=== PATIENT | female | born 1970 | race Caucasian/White ===

== ENCOUNTER 2020-10-18 09:53 | Emergency (ER) | payer OTHER, SELFPAY ==
--- NOTE | ~2020-10-18 | CT_ITS ---
EXAMINATION: CT abdomen pelvis wo con DATE: 10/18/2020 11:47 INDICATION: Bilateral flank pain. TECHNIQUE: Computed tomography (CT) of the abdomen and pelvis was performed without intravenous contr ast. Automated exposure control and iterative reconstruction technique were employed. The dose-length product was 225.25 mGy-cm. COMPARISON: CT abdomen and pelvis 06/24/2014 FINDINGS: The visualized portions of the lung bases demonstrate mild atelectasis. No pleural effusion . The heart size is normal. No pericardial effusion. There is a 6 mm cyst in the liver. The gallbladd er, spleen, pancreas, adrenal glands, and right kidney are normal. There is a 2 mm stone in left kidn ey. There are no dilated loops of bowel. The appendix is normal. There are no pathologically enlarged lymph nodes. There is no free intraperitoneal fluid. There is mild lumbar spondylosis. Lumbar dextro curvature is noted. IMPRESSION: 1. 2 mm nonobstructing left kidney stone. Reviewed, dictated and finalized at location A. STITCHER
[2020-10-18 09:58] VITALS: BP 111/70; PULSE 102; RESP 18; TEMP 36.4; O2SAT 96
--- NOTE | 2020-10-18 10:26 | ED.BACK ---
HPI - Back Pain/Injury General Chief Complaint: Back Pain/Injury Stated Complaint: flank pain Time Seen by Provider: 10/18/20 10:24 History of Present Illness HPI Narrative: 50 yo female with h/o acute renal failure presents to the ED with kidney pain. She first noted low back pain yesterday. As the day went on this moved up her back until it was just below her ribs. It is bilateral. At times it radiates into her neck. She reports that this is the same pain she had when she was previously in renal failure. It is not clear what the etiology was. No other illness. Related Data Home Medications Medication Instructions Recorded Confirmed spironolactone 10/18/20 10/18/20 Allergies Allergy/AdvReac Type Severity Reaction Status Date / Time hydrocodone Allergy Mild ITCHING Verified 10/18/20 11:38 iodine Allergy Unknown Unknown Verified 10/18/20 11:38 codeine AdvReac Mild N/V Verified 10/18/20 11:38 Contrast Media Allergy Unknown HIVES, Uncoded 10/18/20 11:03 RESPIR. DISTRESS Review of Systems Review of Systems: All systems reviewed & are unremarkable except as noted in HPI and below Constitutional: Constitutional: Denies fever(s) ENT: Denies sore throat Cardiovascular: Cardiovascular: Denies chest pain Respiratory: Respiratory: Denies dyspnea Gastrointestinal: Gastrointestinal: Denies abdominal pain Genitourinary: Genitourinary: Denies hematuria, Denies dysuria and Reports flank pain Musculoskeletal: Musculoskeletal: Reports back pain and Reports myalgias Neurologic: Denies dizziness and Denies weakness Endocrine: Endocrine: Reports fatigue [facility] Past Medical History Medical History (Updated 10/18/20 @ 18:04 by Sammy Turpin MD) Acute renal failure Family History Family History (Updated 04/19/16 @ 23:19 by DOCTOR UNKNOWN) Father Asthma Sibling Asthma Mother Family history of diabetes mellitus in first degree relative Social History Social History Smoking status: Never smoker Alcohol intake: never Gender identity (if verbalized by the patient): Female Exam Const: General: healthy appearing, no acute distress and alert Orientation/consciousness: patient oriented x3 HENMT: Head: normal to inspection Neck: Neck: normal visual inspection and no lymphadenopathy Chest: Chest palpation & inspection: no tenderness Resp: Effort & Inspection: normal respiratory effort Auscultation: clear to auscultation bilaterally, no rales, no rhonchi and no wheezes Cardio: Jugular venous distension: no JVD Rate: regular rate Rhythm: regular rhythm Heart sounds: no murmurs GI: Inspection: non-distended GI Palp: Yes Soft to palpation and No Tenderness to palpation present (GI) Back/Spine/Pelvis: Back: no CVA tenderness Thoracic/Lumbar Spine: paraspinal muscle tenderness bilaterally in the mid thoracic Skin: General skin exam: normal color Neuro: General: patient oriented x3 and moves all extremities Speech: normal speech Extrem: General: no edema Psych: Appearance: well kempt Affect: normal affect Course Vital Signs Vital signs: Vital Signs Temperature 36.4 C L 10/18/20 09:58 Pulse Rate 102 H 10/18/20 09:58 Respiratory Rate 18 10/18/20 09:58 Blood Pressure 111/70 10/18/20 09:58 Pulse Oximetry 96 10/18/20 09:58 Temperature 36.4 C L 10/18/20 09:58 Pulse Rate 84 10/18/20 13:55 Respiratory Rate 16 10/18/20 13:55 Blood Pressure 132/74 10/18/20 13:55 Pulse Oximetry 98 10/18/20 13:55 MDM - Back Pain/Injury MDM Narrative Medical decision making narrative: history and physical point toward muscluar pain. CT does not show anything acute. Renal function normal. Medical Records Attestation: I reviewed the patient's medical records. Lab Data Attestation: I reviewed the patient's lab results. Result diagrams: 10/18/20 10:59 10/18/20 10:59 Labs: Lab Results 10/18/20 10/18/20 10/18/20 Range/Units
[2020-10-18] MEDS: SODIUM CHLORIDE 0.9% IV 1,000 ML 999 ML IV CONT (11:03)
[2020-10-18 11:07] LABS: Basophils Percent Auto 0.6 % (0.2-1.2); Eosinophils Absolute Auto 0.1 K/mm3 (0-0.3); Hematocrit 44.2 % (37.0-47.0); Hemoglobin 15.2 g/dL (12.0-15.0); Immature Granulocyte Absolute 0.01 K/mm3 (0.00-0.031); Immature Granulocyte Percent A 0.2 % (0-0.5); Lymphocytes Absolute Auto 0.91 K/mm3 (0.9-3.2); Lymphocytes Percent Auto 14.6 % (18.3-44.2); Mean Corpuscular HGB Conc 34.4 g/dl (32-36); Mean Corpuscular Hemoglobin 31.7 pg (26-34); Mean Corpuscular Volume 92.1 fl (80-100); Mean Platelet Volume 9.5 fl (7.4-10.4); Monocytes Absolute Auto 0.5 K/mm3 (0.1-0.6); Monocytes Percent Auto 7.7 % (2.6-8.5); Neutrophils Absolute Auto 4.7 K/mm3 (1.3-6.7); Neutrophils Percent Auto 75.9 % (45.5-73.1); Platelet Count Result 246 k/mm3 (150-375); Red Cell Distribution Width 12.9 % (11.5-14.5); White Blood Count 6.2 K/mm3 (4.5-10.0)
[2020-10-18 11:10] LABS: Add Urine Microscopic? YES; Appearance Urine Cloudy (Clear); Bacteria Urine Trace /hpf; Bilirubin Urine Negative (Negative); Blood Urine Negative (Negative); Color Urine Yellow (Yellow); Glucose Urine UA Negative (Negative); Ketones Urine 1+ mg/dL (Negative); Leukocyte Esterase Ur Negative LEU/UL (Negative); Mucus Urine Heavy /lpf; Nitrate Urine Negative (Negative); Protein Urine 2+ mg/dL (Negative); Specific Grav Ur 1.027 (1.001-1.035); Squamous Epithelial Cell Urine Many /hpf (Few); Urobilinogen Urine Negative mg/dL (<2.0); WBC Urine 0-3 /hpf
[2020-10-18 11:18] LABS: Alanine Aminotransferase 23 U/L (4-35); Albumin Level 4.3 g/dL (3.5-5.1); Alkaline Phosphatase 40 U/L (38-126); Anion Gap 3 mmol/L (8-16); Aspartate Amino Transferase 36 U/L (14-36); Bilirubin,Total 0.3 mg/dL (0.2-1.3); Blood Urea Nitrogen 15 mg/dL (7-17); Calcium 9.3 mg/dL (8.4-10.2); Carbon Dioxide 31 mmol/L (22-30); Chloride 103 mmol/L (98-107); Estimated CRCL calculation 55 ml/min; Estimated Glomerular Filt Rate 59; Glucose 105 mg/dL (65-105); Potassium 4.2 mmol/L (3.4-5.0); Sodium 137 mmol/L (137-145)
[2020-10-18 13:55] VITALS: BP 132/74; PULSE 84; RESP 16; O2SAT 98
== END 2020-10-18 14:00 | disposition home or self-care (01) ==
PROVIDERS: Emergency Provider Emergency Medicine; PCP Family Medicine
DX: M54.6 Pain in thoracic spine (principal)
CPT/HCPCS: 36415; 74176; 80053; 81001; 81025; 85025; 96360; 99284; J7030

== ENCOUNTER 2022-11-17 11:00 | Emergency (ER) | payer BC, SELFPAY ==
--- NOTE | ~2022-11-17 | XR_ITS ---
XR foot RT min 3V DATE: 11/17/2022 12:20 INDICATION: Great toe pain TECHNIQUE: 4 views COMPARISON: None FINDINGS: There is moderate osteoarthritis at the first metatarsophalangeal joint. No fracture, dislo cation, periosteal reaction or bone destruction or erosive change. IMPRESSION: Moderate osteoarthritis at first metatarsophalangeal joint Reviewed, dictated and finalized at location A. [facility] [employer]
[2022-11-17 11:22] VITALS: BP 123/61; PULSE 69; RESP 18; TEMP 36.6; O2SAT 99
--- NOTE | 2022-11-17 12:22 | ED.GENADULT ---
HPI - General Adult General Chief complaint: Extremity Injury, Lower Stated complaint: swollen rt foot Source: patient Mode of arrival: ambulatory Limitations: no limitations History of Present Illness HPI narrative: Patient presents for evaluation of right foot pain since . She indicates the majority of her pain is in the MTP joint of the right great toe. She was wearing mules at the time of symptom onset. She believes her she was irritating the affected area. She states she has a bunion in that area as well. Pain has been particularly problematic when walking. She rates her pain as 10/10 severity. She applied a heating pad took some ibuprofen. Post seem to help. No history of gout. No paresthesias. Related Data Home Medications Medication Instructions Recorded Confirmed Estradiol Pellets 11/17/22 thyroid 90 mg tablet mg PO 11/17/22 Allergies Allergy/AdvReac Type Severity Reaction Status Date / Time hydrocodone Allergy Mild ITCHING Verified 11/17/22 11:25 iodine Allergy Unknown Unknown Verified 11/17/22 11:25 codeine AdvReac Mild N/V Verified 11/17/22 11:25 Contrast Media Allergy Unknown HIVES, Uncoded 10/18/20 11:03 RESPIR. DISTRESS Review of Systems Review of Systems: CONSTITUTIONAL: Denies fever, chills, or sweats. EYES: Denies visual changes, redness, or discharge. ENT: Denies rhinorrhea, congestion, sore throat, or otalgia. CARDIOVASCULAR: Denies chest pain, palpitations, or edema. RESPIRATORY: Denies cough or dyspnea. GASTROINTESTINAL: Denies abdominal pain, nausea, vomiting, or diarrhea. GENITOURINARY: Denies dysuria or hematuria. SKIN: Denies rash or itching. MUSCULOSKELETAL: Reports pain in the MTP joint of the right great toe. NEUROLOGIC: Denies headache, numbness, dizziness, or weakness. PSYCHIATRIC: Denies anxiety or depression. [facility] Past Medical History Medical History (Updated 11/17/22 @ 12:45 by CORAZON Medina, ARON) Acute renal failure Thyroid disease Surgical History Surgical History (Updated 11/17/22 @ 12:25 by CORAZON Medina, ARON) No pertinent past surgical history Family History Family History Father Asthma Sibling Asthma Mother Family history of diabetes mellitus in first degree relative Social History Social History Smoking status: Never smoker Alcohol intake: never Gender identity (if verbalized by the patient): Female Sexual Orientation (if Verbalized by the Patient): Straight or Heterosexual Spiritual care concerns: No Exam Narrative: GENERAL: Well-appearing, well-nourished, and in no acute distress. HEAD: Normocephalic, atraumatic. EYES: PERRLA and EOMI. ENT: Nares clear, no rhinorrhea or epistaxis. Mucous membranes moist. Oropharynx without tonsillar hypertrophy exudate or other lesions. Bilateral TMs pearly stokes nonbulging NECK: Supple. No adenopathy or masses. No carotid bruits or JVD CHEST: Clear to auscultation. No respiratory distress. No wheezes rales or rhonchi HEART: Regular rate and rhythm. No murmur heard. Normal peripheral pulses. ABDOMEN: Soft, nontender, nondistended, normal active bowel sounds. EXTREMITIES: Normal range of motion. Tenderness over the MTP joint of the right great toe. SKIN: No erythema noted to the right foot NEURO: No focal deficits. Alert and oriented x3. PSYCH: Normal mood and affect. Course Course Emergency Course: This is a 52-year-old female who presented for evaluation of pain in the right great toe. Low clinical suspicion for gout is there is no warmth redness. She does have osteoarthritis noted on x-ray.. Discussed available treatment options. Will avoid NSAIDs due to history of kidney disease. Offered analgesics, which she declined. Also discussed topical voltaren which she declined. Will treat with prednisone. Follow up with primary provid
== END 2022-11-17 12:57 | disposition home or self-care (01) ==
PROVIDERS: Emergency Provider Nurse Practitioner
DX: M25.571 Pain in right ankle and joints of right foot (principal); E07.9 Disorder of thyroid, unspecified
CPT/HCPCS: 73630; 99213; G0463